=== PATIENT | male | born 1990 | race Two or more races ===

== ENCOUNTER 2024-12-12 14:34 | Emergency (ER) | payer MEDICAID ==
[~2024-12-12] VITALS: Ht 175.3 cm; Wt 59.0 kg
[2024-12-12 14:42] VITALS: BP 105/70; PULSE 113; RESP 18; TEMP 36.8; O2SAT 98; O2SAT 99
== END 2024-12-12 15:00 | disposition left against medical advice (07) ==
LOC: ER 14:34
DX: F15.90 Other stimulant use, unspecified, uncomplicated (principal); Z53.21 Procedure and treatment not carried out due to patient leaving prior to being seen by health care provider